=== PATIENT | male | born 1955 | race Caucasian/White ===

== ENCOUNTER → 2019-11-25 09:41 | Outpatient (CLI) | payer OTHER, SELFPAY | PROVIDERS: PCP Family Medicine; Referring Provider Family Medicine; Visit Provider Orthopaedic Surgery | DX: Z01.818 Encounter for other preprocedural examination (principal) | CPT/HCPCS: 93005; 93010 ==

== ENCOUNTER → 2020-03-17 10:46 | Outpatient (CLI) | payer OTHER, SELFPAY ==
--- NOTE | 2020-03-17 10:49 | DI.MRI.S_ITS ---
PROCEDURE: MR CERVICAL SPINE WO CON INDICATIONS: L cervical radiculopathy TECHNIQUE: Noncontrast sagittal T1 spin echo and T2 fast spin echo, sagittal STIR, foraminal oblique sagittal T2 fast spin echo, and axial gradient echo or T2 fast spin echo through the cervical spine. COMPARISON: None. FINDINGS: Image quality: Excellent. Alignment and Curvature: Trace degenerative retrolisthesis of C6 on C7 and of C5 on C6. Trace degenerative anterolisthesis of C4 on C5, C3 on C4, and C2 on C3. Bone Marrow: Marrow demonstrates normal overall signal. Spinal Cord: Visualized spinal cord has normal size and signal. No cerebellar tonsillar herniation. Paraspinous Soft Tissues: No paravertebral masses. Prevertebral soft tissues are normal in thickness. C2-C3: No canal stenosis. Prominent right facet hypertrophy. Mild left facet hypertrophy. Moderate right foraminal narrowing with mild flattening deformity on the exiting right C3 nerve root. C3-C4: Mild disc bulge without canal stenosis. Bilateral facet hypertrophy. Moderate right and severe left foraminal narrowing. Mild flattening deformity on the exiting right C4 nerve root. Impingement on the exiting left C4 nerve root. C4-C5: Disc bulge without canal stenosis. Exuberant facet hypertrophy on the right. Mild left facet hypertrophy and uncovertebral joint hypertrophy. Severe right foraminal narrowing with impingement on the right C5 nerve root. Mild to moderate left foraminal narrowing. C5-C6: Diffuse posterior disc plus osteophyte. Mild canal stenosis. Bilateral uncovertebral joint hypertrophy and facet hypertrophy. Moderate to severe bilateral foraminal narrowing with impingement on the bilateral exiting C6 nerve roots. C6-C7: Diffuse posterior disc post osteophyte. Moderate canal stenosis. Bilateral uncovertebral joint hypertrophy and facet hypertrophy. Moderate to severe bilateral foraminal narrowing with bilateral C7 nerve root impingement. C7-T1: No canal stenosis or foraminal stenosis. IMPRESSION: 1. Diffuse spondylitic change. 2. Mild canal stenosis at C5-C6 and moderate canal stenosis at C6-C7 3. Multilevel significant bilateral bony foraminal narrowing as described above, mainly on the basis of multilevel facet arthropathy. Dictated by: Akbar Sánchez M.D. on 03/17/2020 at 16:04 Approved by: Akbar Sánchez M.D. on 03/17/2020 at 16:18
== END ==
PROVIDERS: PCP Family Medicine; Referring Provider Family Medicine; Visit Provider Family Medicine
DX: M47.22 Other spondylosis with radiculopathy, cervical region (principal); M48.02 Spinal stenosis, cervical region
CPT/HCPCS: 72141

== ENCOUNTER → 2020-10-18 14:50 | Outpatient (CLI) | payer OTHER, SELFPAY ==
[2020-10-18 17:00] LABS: COVID19 -Nasal RAPID Negative (Negative)
== END ==
PROVIDERS: PCP Family Medicine; Visit Provider Surgery
DX: Z20.822 Contact with and (suspected) exposure to COVID-19 (principal)
CPT/HCPCS: 87635; C9803

== ENCOUNTER 2020-10-19 07:51 | Day surgery (SDC) | payer OTHER, SELFPAY ==
[2020-10-14 12:58] VITALS: BMI 29.0
[2020-10-19] VITALS (19 sets, daily range): BP systolic 107–149; BP diastolic 60–92; PULSE 54–98; RESP 10–21; TEMP 36.4–37.3; O2SAT 86–99; BMI 29.0
[2020-10-19] MEDS: LACTATED RINGERS 1,000 ML 100 ML IV ×2 (08:33→12:18)
[2020-10-19] MEDS: ACETAMINOPHEN 325 MG TABLET 975 MG PO (08:48)
[2020-10-19] MEDS: GABAPENTIN 300 MG CAPSULE PO (08:48)
--- NOTE | 2020-10-19 10:31 | PM.PREOP ---
Pre-operative Note Interval Note History & Physical reviewed/Exam performed by Physician: Yes Changes to H&P: No
[2020-10-19] MEDS: CEFAZOLIN 1 GM VIAL 2 GM IV (11:09)
--- NOTE | 2020-10-19 11:16 | SUR.OPER ---
Supine on padded OR bed, head on pillow, arms secured on padded arm boards at <90 degrees abduction, legs uncrossed, safety belt at thigh, tape over blanket over lower legs.
[2020-10-19] MEDS: BUPIVACAINE 0.25% (PF) VIAL 30 ML INJ ×2 (11:28→12:58)
[2020-10-19] MEDS: HYDROMORPHONE 2 MG INJ IV ×16 (13:20→14:50)
[2020-10-19] MEDS: fentaNYL 100 MCG/2 ML INJ IV ×2 (14:00→14:05)
[2020-10-19] MEDS: LACTATED RINGERS 1,000 ML 42 ML IV (14:04)
[2020-10-19] MEDS: OXYCODONE IR 5 MG TABLET PO ×2 (14:30→15:05)
--- NOTE | 2020-10-19 14:51 | P.OP_ITS ---
Operative Date/Time/Diagnoses Date of procedure: 10/19/20 Time of procedure: 14:51 Pre-op diagnosis: bilateral inguinal and umbilical hernia Post-op diagnosis: same Procedure & Clinicians Procedure: Open bilateral inguinal hernia, open umbilical hernia repair with mesh Same procedure as scheduled: Yes Indications: Reducible bilateral inguinal and umbilical hernia Surgeon: Kirk Oshea Anesthesia Type: General Operative Notes Findings: Bilateral direct hernia defect, umbilical hernia containing omentum Specimen(s): none sent Estimated Blood Loss (mL): 30 Procedure in detail: The patient was placed supine on the table and bilateral lower extremity compression devices were applied. Anesthesia was induced they were intubated with an LMA and received 2g of Ancef. A time-out was performed. They were prepped and draped in sterile fashion. The right external inguinal ring and the anterior superior iliac crest were identified and marked. 1 finger breath above the inguinal ligament the skin was infiltrated with 0.25% bupivacaine. The skin incision was made here and the subcutaneous tissues were divided with electrocautery exposing the external oblique aponeurosis which was then opened along the direction of its fibers. Using blunt dissection the internal oblique aporneurosis was from the external oblique upper leaflet to identify the iliohypogastric nerve. Using a kittner the cord was carefully dissected away from the inguinal canal adjacent to the pubic tubercle. The cord including the vas deferens, testicular bloody supply, ilioguinal and genital nerve were encircled with a Yary drain. A direct floor defect was identified and it was reduced into the abdomen and the internal oblique a porneuorsis was approximated to the inguinal ligament with Ethibond suture to reapproximate the floor over a plug of mesh. The cremasteric fibers surrounding the cord were divided using electrocautery adjacent to the internal ring.. The vas deferens and the testicular vessels were preserved and protected. There was no indirect hernia. I selected a 7x 15 cm lightweight Pro Loop hernia mesh. The inferior medial aspect of the mesh was anchored to insertion of the rectus muscle to the pubic tubercle such that there was approximately 2 cm of tubercle overlap with Ethibond and then was run continuously along the inferior edge of the mesh to the shelving edge of the inguinal ligament. Interrupted 3 0 Vicryl suture was used to anchor the superior aspect of the mesh to the conjoined tendon in several places. The tails were then reapproximated loosely around the spermatic cord. The tails of the mesh were then tucked under the external oblique aponeurosis. The repair was checked for hemostasis. The wound was irrigated with sterile saline. The external oblique aponeurosis was reapproximated in a running fashion using 3 0 Vicryl. The subcutaneous tissues were reapproximated with 3 0 Vicryl skin closed with 4 0 Monocryl followed by the application of Dermabond. The left inguinal hernia was then repaired in the same fashion. Only a direct hernia defect was present no indirect. A curvilinear incision was made inferior to the umbilicus. The subcutaneous tissues were divided. The umbilical hernia was identified and the hernia sac was dissected off the umbilical skin and circumferentially off of the fascia defect. The hernia sac was sharply opened and contained viable omentum. The omentum was reduced back into the abdomen. Using blunt dissection I carefully carefully freed the hernia sac from beneath the fascia defect in order to accomodate the mesh. The fascia defect was 2 cm in maximal diameter. A Bard Ventralex ST hernia patch 4 cm was inserted beneath the fascia defect and above the peritoneum in a sublay position. The mesh was anchored in multiple locations using Ethibond suture to the fascia and the fascial defect was closed over the mesh. The umbilical skin was tacked to the subcutaneous tissues and then the remainder of the subcutaneous tissues were reapproximated using 3 0 Vicry,l skin closed with 4 0 Monocryl followed by the application of Dermabond and Steri- Strips. At the end of the operation I ensured that both testicles were within the scrotum. The sponge instrument count at the end operation was correct. The patient emerged from anesthesia was extubated and transferred to the postoperative care unit in stable condition. A total of 30 ml of of 0.25% bupivicaine was used to infiltrate the skin. Complications: none Post-operative Condition: stable Disposition: same day surgery
--- NOTE | 2020-10-19 15:45 | SUR.PHASEII ---
Pt brought to phase 2, placed on o2 sat on room air, sats 88-92 on room air. Pt placed on 1l via nasal cannula sats 95-97% using incentive spe spirometer up to 2200
--- NOTE | 2020-10-19 16:27 | SUR.PHASEII ---
Spoke with Dr. Oshea about pt's sats and pain control. Low dose narcan ordered.
[2020-10-19] MEDS: NALOXONE 0.4 MG/ML VIAL 0.1 MG IV (16:30)
--- NOTE | 2020-10-19 16:58 | SUR.PHASEII ---
Pt given 0.1 of narcan IV, pt taken off 02 sats 94-95%. Drinking coffee. Pt's updated throughout stay here. She was made aware pt needs to stay for 2 hours.
--- NOTE | 2020-10-19 18:20 | SUR.PHASEI ---
Sats maintained on room air 94-97%, RR 16 and above. Pt up to BR, steady when up. Voided again w/o difficulty and dressed. D/C instructions discussed by MARIO Barrera with pt, d/c instructions discussed with pt's by this RN. Bilateral groins and umbilical areas c/d/i with glue present. Pt left unit in stable condition.
--- NOTE | 2020-10-19 18:54 | SUR.PHASEII ---
Late entry: addendum: pt has chronic pain to L shoulder and lower back which he rated 6/10. 6/10 is normal per pt.
== END 2020-10-19 18:40 | disposition home or self-care (01) ==
PROVIDERS: PCP Family Medicine; Referring Provider Surgery; Visit Provider Surgery
PROC: (CPT 49505; principal; 2020-10-19 09:15)
PROC: (CPT 49505; 2020-10-19 09:15)
DX: K40.20 Bilateral inguinal hernia, without obstruction or gangrene, not specified as recurrent (principal); K42.9 Umbilical hernia without obstruction or gangrene; E03.9 Hypothyroidism, unspecified
CPT/HCPCS: 49505; 49585; 82962; C1781; J0330; J0690; J1100; J1170; J1885; J2310; J2405; J2704; J3010

== ENCOUNTER → 2021-12-23 10:55 | Outpatient (CLI) | payer OTHER, SELFPAY ==
--- NOTE | 2021-12-23 | DI.MRI.S_ITS ---
PROCEDURE: MR HEAD/BRAIN WO/W CON INDICATIONS: WEAKNESS WTIH DORSIFLEXION AND PLANTAR FLEXION TECHNIQUE: Noncontrast axial T1 spin echo, axial T2 fast spin echo, sagittal and axial FLAIR, coronal T2 fast spin echo, axial gradient echo, axial diffusion and ADC through the brain. After the administration of contrast, axial and coronal and sagittal T1 spin echo with fat saturation through the brain. COMPARISON: [facility], MR, BRAIN (IAC) W AND WO CONTRAST, 08/25/2010, 9:54. FINDINGS: Image quality: Excellent. CSF spaces: Basal cisterns are patent. No extra-axial fluid collections. Ventricles are normal in size and shape. Brain: No midline shift. No intracranial bleeds or masses. No abnormal intracranial enhancement. There is cerebral volume loss for age. There is periventricular white matter chronic small vessel ischemic change. The brainstem appears normal. Diffusion-weighted images demonstrate no acute ischemic insults. No chronic ischemic insults. Normal intravascular flow voids are present. Skull and face: Calvarial marrow is normal in signal. Orbits appear normal. Sinuses: Mild mucosal thickening is seen within the ethmoid air cells, with minimal mucosal thickening seen elsewhere within the paranasal sinuses. IMPRESSION: Unremarkable brain MRI for age, without a cause of the patient's presenting symptoms identified. No findings of acute or subacute infarction can be seen. No masses or abnormal enhancement can be seen. Mild ethmoid air cell disease incidentally noted. Dictated by: Cheko Rowe M.D. on 12/23/2021 at 10:54 Approved by: Cheko Rowe M.D. on 12/23/2021 at 10:55
== END ==
PROVIDERS: PCP Physician Assistant; Referring Provider Physician Assistant; Visit Provider Physician Assistant
DX: R29.898 Other symptoms and signs involving the musculoskeletal system (principal); R53.1 Weakness
CPT/HCPCS: 70553

== ENCOUNTER → 2022-04-07 08:22 | Outpatient (CLI) | payer OTHER, SELFPAY ==
--- NOTE | 2022-04-07 | DI.MRI.S_ITS ---
PROCEDURE: MR CERVICAL SPINE WO CON INDICATIONS: Spinal stenosis, cervical region TECHNIQUE: Noncontrast sagittal T1 spin echo and T2 fast spin echo, sagittal STIR, foraminal oblique sagittal T2 fast spin echo, and axial gradient echo or T2 fast spin echo through the cervical spine. COMPARISON: 03/17/2020 MRI cervical spine. FINDINGS: Image quality: Excellent. Alignment and Curvature: Degenerative straightening of the usual cervical lordosis. Anterolisthesis of C3 on C4 measuring 2 mm. Retrolisthesis of C6 on C7 measuring 2 mm. Vertebral body heights maintained. Bone Marrow: No suspicious focal marrow signal abnormality. Mild discogenic marrow edema at the opposing C5-C6 endplates and adjacent to the C5-C6 facets, right greater than left. Spinal Cord: Normal morphology and signal intensity of the cervical cord. Regional Soft Tissues: No paravertebral masses. Prevertebral soft tissues are normal in thickness. C2-C3: No spinal canal stenosis. Facet and uncovertebral hypertrophy combine to produce mild left and moderate right neural foraminal narrowing. C3-C4: Posterior disc-osteophyte complex flattens the ventral thecal sac without mass effect upon the cord. Facet and uncovertebral hypertrophy combine to produce severe bilateral neural foraminal narrowing. C4-C5: Posterior disc osteophyte complex flattens the ventral thecal sac without mass effect upon the cord. Facet and uncovertebral hypertrophy combine to produce severe right and moderate left neural foraminal narrowing. C5-C6: Posterior disc osteophyte complex flattens the ventral cord slightly. Facet and uncovertebral hypertrophy combine to produce severe bilateral neural foraminal narrowing. C6-C7: Posterior disc osteophyte complex flattens the ventral cord slightly, right greater than left. Facet and uncovertebral hypertrophy combine to produce severe bilateral neural foraminal stenosis. C7-T1: No spinal canal stenosis. Mild bilateral neural foraminal narrowing due to facet uncovertebral hypertrophy. IMPRESSION: Multilevel multifactorial degenerative changes, progressed at every level when compared with 03/17/2020 exam. Multilevel severe neural foraminal narrowing as detailed above. Mild spinal canal stenosis at C5-C6 and C6-C7. Dictated by: Alexander Pinon M.D. on 04/07/2022 at 9:39 Approved by: Alexander Pinon M.D. on 04/07/2022 at 9:45
== END ==
PROVIDERS: PCP Physician Assistant; Referring Provider Physical Medicine & Rehabilitation; Visit Provider Physical Medicine & Rehabilitation
DX: M48.02 Spinal stenosis, cervical region (principal); M47.812 Spondylosis without myelopathy or radiculopathy, cervical region
CPT/HCPCS: 72141